=== PATIENT | female | born 1995 | race African-American/Black ===

== ENCOUNTER 2021-01-28 13:44 | Emergency (ER) | payer OTHER ==
[2021-01-28 14:10] VITALS: BP 131/82; PULSE 74; TEMP 98.6; BMI 29.0
[2021-01-28] MEDS ORDERED: LIDOCAINE HCL 1%, 10 MG/ML (50 mL VIAL) INF ONE (14:39)
[2021-01-28] MEDS ORDERED: LIDOCAINE HCL 1%, 10 MG/ML (20ML VIAL) ONE (14:39)
== END 2021-01-28 15:08 | disposition home or self-care (01) ==
LOC: JERFT 13:44
PROC: 0H98XZZ Drainage of Buttock Skin, External Approach (ICD-10-PCS; principal; 2021-01-28)
DX: L02.411 Cutaneous abscess of right axilla (principal)
CPT/HCPCS: 87070; 87205; 99283-25

== ENCOUNTER 2021-01-30 15:27 | Emergency (ER) | payer OTHER ==
[2021-01-30 15:43] VITALS: BP 125/82; PULSE 89; TEMP 98.1; BMI 25.8
== END 2021-01-30 17:32 | disposition home or self-care (01) ==
LOC: JERFT 15:27 → JER 15:27 → JERFT 17:32
DX: Z48.00 Encounter for change or removal of nonsurgical wound dressing (principal)
CPT/HCPCS: 99281-25

== ENCOUNTER 2021-02-04 17:30 | Emergency (ER) | payer OTHER ==
[2021-02-04 17:43] VITALS: BP 132/81; PULSE 100; TEMP 98.2; BMI 29.0
== END 2021-02-04 18:13 | disposition home or self-care (01) ==
LOC: JERFT 17:30
DX: Z48.00 Encounter for change or removal of nonsurgical wound dressing (principal)
CPT/HCPCS: 99281-25